=== PATIENT | female | born 1990 | race Caucasian/White ===

== ENCOUNTER 2016-10-20 04:14 | Emergency (ER) | payer OTHER ==
[~2016-10-20] VITALS: Ht 149.9 cm; Wt 56.2 kg
[~2016-10-20 04:14] MED LIST: CYCL10TA2 PO; HYDR-971 PO
--- NOTE | 2016-10-20 04:31 | PHYS DOC ---
General Chief Complaint: EARACHE/EAR PAIN Time Seen by MD: 04:23 Source: patient Problems: History of Present Illness Initial Comments Patient here with complaints of earache and abdominal pain. When asked what the main reason brought her to the emergency room tonight, she says the abdominal pain. She says the abdominal pains been going on for about a week. Slow-K in the lower abdomen. She is unable to describe the quality of the pain. She is constantly getting worse. She says she's noted this pain since she found out she was with a home test. Her last period was in mid September. She's had no fever or chills with this. There is no runny nose or sore throat. She does say that she has a right earache which is causing sharp shooting pains just preventing her from sleep. There is no drainage or discharge from the ER no history of trauma to the ear. There is no chest pain or trouble breathing. She has had 5 episodes of vomiting today without blood or bilious Abi. She' s not had anything to eat or drink since. She has the lower abdominal pain as described. She has no change in bowel or bladder habits. There is no focal extremity or neurologic complaints noted. This would be the patient's first . Patient's done nothing at home for this and notes no factors that increase or decrease any symptoms she might have. Patient's past medical history is otherwise unremarkable except for some anxiety. She takes clonazepam on an as-needed basis. She's not been doing so recently. She is a nonsmoker. She is occasional social user of ethanol but has not been doing so recently. Allergies: Coded Allergies: No Known Drug Allergies (Unverified , 10/20/16) Past Medical History Medical History: no pertinent history Social History Smoker: non-smoker Alcohol: occasionally Review of Systems All Other Systems: Reviewed and Negative Physical Exam General Appearance: WD/WN, no apparent distress Ear, Nose, Throat: normal ENT inspection, normal pharynx Neck: full range of motion, supple, normal inspection Respiratory: lungs clear, normal breath sounds, no respiratory distress Cardiovascular: regular rate, rhythm, no edema Gastrointestinal: soft, no organomegaly, tenderness Back: no CVA tenderness, no vertebral tenderness Extremities: non-tender, normal inspection, no pedal edema Neurologic/Psychiatric: no motor/sensory deficits, alert, normal mood/affect, oriented x 3 Skin: normal color Lymphatic: no adenopathy Comments Generally this is a well-developed well-nourished white female in no acute distress. Vitals are as noted. Pertinent findings on physical exam shows the nose noted to be clear. The ears are clear as well. There is no signs of trauma injury or inflammation year. TMs well visualized with a good red reflex on the right. Neck is supple without adenopathy or JVD. There's no meningeal signs. Chest is clear to auscultation bilaterally. Cardiac vascular exam shows regular rate and rhythm without murmur the abdomen is soft. She is mildly tender over the suprapubic region. There is no masses, organomegaly, or peritoneal findings noted. Back shows no CVA tenderness. Extremity show no rashes, cyanosis, or edema. Patient is awake alert oriented and cooperative. Remainder of physical exam is clinically unremarkable. Orders, Labs, Meds Old charts noticing a prior ER visit for neck injury. Labs today are notable only for positive beta hCG. Her labs are otherwise clinically unremarkable. 0550 Patient resting comfortably in the ER. She says she's overall unchanged. She's had no further vomiting but has not tried to drink anything since she's been here tonight. Pelvic ultrasound remains pending. I went ahead and got some Sprite for the patient to drink. We discussed that if she is able tolerate by mouth fluids, we can probably send her home. We'll go ahead and write prescriptions in advance for Diclegis, for nausea vomiting of , as well as some vitamins and Auralgan drops for her ear pain of uncertain cause. If the patient is unable tolerate fluids, she may require admission for nausea vomiting of early . I did discuss with the patient the upcoming change of shift. Patient checked out to oncoming emergency physician with this plan in mind. DAREN GONZALEZ MD Oct 20, 2016 04:31
[2016-10-20] MEDS ORDERED: PROMETHAZINE 12.5 MG in IV NORMAL SALINE 50ML 50 ML IV PRN (04:45)
[2016-10-20] MEDS ORDERED: PROMETHAZINE 25 MG/ML VIAL IV ONE (04:56)
[2016-10-20] MEDS ORDERED: IV NORMAL SALINE 50ML 50 ML ONE (04:57)
[2016-10-20 04:58] VITALS: BP 109/60
[2016-10-20] MEDS ORDERED: IV NORMAL SALINE 1,000ML 1,000 ML IV ONE (05:00)
[2016-10-20 05:13] LABS: BILIRUBIN,URINE NEG (NEG); CLARITY,URINE HAZY; COLOR,URINE STRAW; GLUCOSE,URINE NEG (NEG)
[2016-10-20 05:14] LABS: BACTERIA,URINE FEW /HPF (0-FEW); BASO # 0.1 x10^3/uL (0.0-0.2); BASO % 1 % (0-3); EOS # 0.1 x10^3/uL (0.0-0.7); EOS % 1 % (0-3); HEMATOCRIT 38.1 % (36.0-47.0); HEMOGLOBIN 12.7 g/dL (12.0-15.5); LYMPH # 4.5 x10^3/uL (1.0-4.8); LYMPH % 46 % (24-48); MEAN CORPUSCULAR HEMOGLOBIN 29 pg (25-35); MEAN CORPUSCULAR HGB CONC 33 g/dL (31-37); MEAN CORPUSCULAR VOLUME 86 fL (79-100); MONO # 0.9 x10^3/uL (0.0-1.1); MONO % 10 % (0-9); NEUT # 4.3 x10^3uL (1.8-7.7); NEUT % 43 % (31-73); NITRITE,URINE NEG (NEG); PLATELET COUNT 540 x10^3/uL (140-400); RBC,URINE RARE /HPF (0-2); RED BLOOD COUNT 4.45 x10^6/uL (3.50-5.40); RED CELL DISTRIBUTION WIDTH 15.5 % (11.5-14.5); SQUAMOUS EPITHELIAL CELL,UR MOD /LPF; UROBILINOGEN,URINE 0.2 mg/dL (0.2 mg/dL); WBC,URINE RARE /HPF (0-4); WHITE BLOOD COUNT 9.9 x10^3/uL (4.0-11.0)
[2016-10-20 05:20] LABS: ALBUMIN 4.4 g/dL (3.4-5.0); CALCIUM 9.5 mg/dL (8.5-10.1); CREATININE 0.8 mg/dL (0.6-1.0); GFR 87.4; POTASSIUM 3.5 mmol/L (3.5-5.1); TOTAL BILIRUBIN 0.4 mg/dL (0.2-1.0); TOTAL PROTEIN 8.7 g/dL (6.4-8.2)
--- NOTE | 2016-10-20 06:03 | RAD ---
Ultrasound Ob less than 14 weeks with transvaginal Indication: Pelvic pain with positive test. The uterus measures 9.3 x 7.3 x 3.9 centimeters. There is a tiny gestational sac within the endometrium consistent with approximately 5 weeks 2 days gestation. There is a small yolk sac present but no pole is seen at this time. No perigestational sac hemorrhage is detected. The right ovary measures 2.7 x 1.7 x 3.3 centimeters and the left ovary measures 3.4 x 2.6 x 3.4 centimeters. No adnexal mass or free fluid is seen. Impression: Approximately 5 week intrauterine gestational sac. No pole is seen at this time, likely owing to early gestation. Follow-up ultrasound and/or correlation with serial beta HCG levels could be performed. Electronically signed by: Mendoza Howe MD (Oct 20, 2016 06:02:30)
== END 2016-10-20 07:10 | disposition home or self-care (01) ==
LOC: ER 04:14
DX: O26.891 Other specified pregnancy related conditions, first trimester (principal); R10.30 Lower abdominal pain, unspecified; H92.01 Otalgia, right ear; O21.9 Vomiting of pregnancy, unspecified; Z3A.01 Less than 8 weeks gestation of pregnancy
CPT/HCPCS: 36415; 76801; 76817; 80053; 81001; 82010; 82150; 83690; 84702; 84703; 85027; 96365; 96366; 99285; J2550; 81025; J7030

== ENCOUNTER 2018-02-18 14:53 | Emergency (ER) | payer OTHER ==
[~2018-02-18] VITALS: Ht 149.9 cm; Wt 59.0 kg
[~2018-02-18 14:53] MED LIST changes: +CYCL-331 PO; -CYCL10TA2 PO
[2018-02-18 15:00] VITALS: BP 116/72
[2018-02-18] MEDS ORDERED: HYDROcodone/APAP 5/325MG 1 TAB TABLET ONE (15:24)
[2018-02-18] MEDS ORDERED: HYDROcodone/APAP 5/325MG 1 TAB TABLET PO ONE (15:30)
--- NOTE | 2018-02-18 15:30 | ED.ADGEN ---
Past History Past Medical History: Anxiety Past Surgical History: No Surgical History, Other Alcohol Use: Rarely Drug Use: None Adult General Chief Complaint Chief Complaint Neck pain HPI HPI Patient is a 27-year-old female who presents with continued or persistent neck pain after having a syncopal episode yesterday at work and hitting her head. Patient was seen at an outside ED in [place], [place] who states she underwent the ED evaluation had imaging and lab performed and was told that she passed out due to low blood pressure. She was prescribed pain medication which she states has not helped. Pain is located in the left lateral mid cervical region. It is worse with palpation and range of motion. No midline pain tenderness, radicular symptoms. No other acute symptoms or complaints. Last menstrual period was 3 days ago. Patient is not currently on control. [] Review of Systems Review of Systems ROS as per HPI All other systems were reviewed and found to be within normal limits, except as documented in this note. Current Medications Current Medications Current Medications Medications (Trade) Dose Ordered Sig/Jacey Start Time Stop Time Status Last Admin Dose Admin Acetaminophen/ Hydrocodone Bitart (Lortab 5/325) 1 tab STK-MED ONCE 02/18/18 15:24 02/18/18 15:25 DC Metoclopramide HCl (Reglan) 10 mg 1X ONCE 02/18/18 16:30 02/18/18 16:30 DC Prochlorperazine Edisylate (Compazine) 10 mg 1X ONCE 02/18/18 16:30 02/18/18 16:30 DC Sodium Chloride 1,000 ml @ 1,000 mls/hr 1X ONCE 02/18/18 16:30 02/18/18 16:30 DC Allergies Allergies Allergies Coded Allergies Type Severity Reaction Last Updated Verified No Known Drug Allergies 10/20/16 No Physical Exam Physical Exam Constitutional: Well developed, well nourished, no acute distress, non-toxic appearance. [] HENT: Normocephalic, atraumatic, bilateral external ears normal, oropharynx moist, no oral exudates, nose normal. [] Eyes: PERRLA, EOMI, conjunctiva normal, no discharge. [] Neck: No bruising swelling, midline bony tenderness or step-off. Mid paracervical muscle tenderness to palpation, Normal range of motion, with pain on lateral rotation r. [] Cardiovascular:Heart rate regular rhythm, no murmur.[] Lungs & Thorax: Bilateral breath sounds clear to auscultation [] Neurologic: Alert and oriented X 3, normal motor function, normal sensory function, no focal deficits noted. [] Current Patient Data Vital Signs Vital Signs Date Time Temp Pulse Resp B/P (MAP) Pulse Ox O2 Delivery O2 Flow Rate FiO2 02/18/18 15:28 18 EKG EKG [] Radiology/Procedures Radiology/Procedures [] Course & Med Decision Making Course & Med Decision Making Pertinent Labs and Imaging studies reviewed. (See chart for details) []Most recent, labs and imaging studies reviewed. No midline step-off, tenderness or radicular symptoms. No abnormalities located on 5 view cervical spine. Additional imaging offered but declined by patient. We'll treat supportively with PCP follow-up. Final Impression Final Impression [#1 acute cervical strain] Dragon Disclaimer Dragon Disclaimer This electronic medical record was generated, in whole or in part, using a voice recognition dictation system. MICHAELLE RODARTE DO Feb 18, 2018 15:30
[2018-02-18] MEDS ORDERED: METOCLOPRAMIDE 10 MG TABLET PO ONE (16:30)
[2018-02-18] MEDS ORDERED: IV NORMAL SALINE 1,000ML 1,000 ML IV ONE (16:30)
[2018-02-18] MEDS ORDERED: PROCHLORPERAZINE 10 MG/2 ML VIAL. IV ONE (16:30)
[2018-02-18] MEDS ORDERED: HYDR-971 PO (16:41)
== END 2018-02-18 16:46 | disposition home or self-care (01) ==
LOC: ER 14:53
DX: S16.1XXA Strain of muscle, fascia and tendon at neck level, initial encounter (principal); R55 Syncope and collapse; F41.9 Anxiety disorder, unspecified; W22.8XXA Striking against or struck by other objects, initial encounter; Y93.89 Activity, other specified; Y92.89 Other specified places as the place of occurrence of the external cause; Y99.8 Other external cause status
CPT/HCPCS: 99283